=== PATIENT | female | born 1965 | race Caucasian/White ===

== ENCOUNTER → 2016-07-07 | Day surgery (SDC) | payer OTHER ==
[~2016-07-07] VITALS: Ht 154.9 cm; Wt 68.6 kg
[~2016-07-07] MED LIST: AMPICILLIN-SULBACTAM INJ 3 GM VIAL ONE; ATEN25TA PO; BACITRACIN TOP OINT 15 GM TUBE ONE; ESCI10TA PO; FOLI5CAP PO; HYDR-3516 PO; LACTATED RINGER'S 1000 ML INJ 1,000 ML ONE; LIDOCAINE 1%/EPINEPHrine 1:100,000 SOLN 30 ML VIAL ONE; MAGN500T5 PO; METH2.5T PO; ONDANSETRON HCL 4 MG/2 ML VIAL ONE; OXYMETAZOLINE HCL 0.05% 15 ML NASAL SPRAY ONE; PROPOFOL 200 MG/20 ML AMP IV ONE; SIMV10TA PO; SODIUM CHLORIDE 0.9% INJ 100 ML ONE; TOPI1TAB31 PO; fentaNYL CITRATE 250 MCG/5 ML AMP ONE
[2016-07-07 07:06] VITALS: BP 144/72; PULSE 63; RESP 20; TEMP 98; O2SAT 97
[2016-07-07 08:34] VITALS: PULSE 86
[2016-07-07 09:00] VITALS: PULSE 70; TEMP 98.3
[2016-07-07 09:35] VITALS: BP 112/74; PULSE 67; RESP 16; O2SAT 98
--- NOTE | 2016-07-07 14:50 | EKG ---
Date Performed: 07/07/2016 Time Performed: 07:10:52 PTAGE: 51 years EKG: Sinus rhythm . Left axis deviation Possible anteroseptal infarct - age undetermined Lateral T wave changes may be due to myocardial ischemia Abnormal ECG NO PREVIOUS TRACING DOCTOR: Miles Zimmerman Interpretating Date/Time 07/07/2016 14:49:00
--- NOTE | 2016-07-07 16:48 | MP ---
cc: STEW ABREU M.D. DATE OF SURGERY 07/07/[address] Stew Abreu PREOPERATIVE DIAGNOSES 1. Nasal airway obstruction. 2. Nasal septal deviation. 3. Hypertrophy inferior turbinates. 4. Adenoidal hypertrophy. POSTOPERATIVE DIAGNOSES 1. Nasal airway obstruction. 2. Nasal septal deviation. 3. Hypertrophy inferior turbinates. 4. Adenoidal hypertrophy. OPERATION PERFORMED 1. Open repair of nasal septal fracture. 2. Bilateral submucosal resection of inferior turbinates. 3. Transnasal biopsies of nasopharyngeal lesion. 4. Adenoidectomy. INDICATIONS The indications are documented history and physical. DESCRIPTION OF OPERATION The patient was taken to OR #2 and placed in the supine position. Following induction of general anesthesia and intubation the nose was packed bilaterally with cotton pledgets saturated in 0.05% Oxymetazoline. The septal mucosa and inferior turbinates were injected with a total of 60 ml of 1% Xylocaine with epinephrine 1:100,000. She was then prepped and draped for surgery. Nasal packing was removed and a hemitransfixion incision was made in the left nasal vestibule. Through this incision the mucosa of septum was elevated as far as the junction of the bony cartilaginous septum. This exposed the quadrangular cartilage which was very thick, twisted and irregular with evidence of old septal fracture. A cumulative area of 2.0 x 2.5 cm was removed preserving 1.5 cm dorsal and caudal cartilaginous struts. When this was completed the mucosa was elevated from the bony septum and the maxillary crest and the bony septum was removed with Maurice Carlton forceps and Sam septal forceps. The maxillary crest was removed using a 6-mm Josh chisel. The incision was then closed with a running suture of 4-0 chromic and the mucosal layers of septum were approximated to each other with a quilting stitch of 4-0 plain gut. The inferior turbinates were then fractured out medially and stab incisions were opened along their inferior surfaces. Through these incisions the submucosal soft tissue was reduced using a curette and preserving the conchal bone. The incisions were then cauterized using suction Bovie at 35 sears. When this was completed and the nasal vault was irrigated and suctioned, the table was then turned 90 degrees and a shoulder roll and a McIvor mouth gag were put in place. A soft catheter was advanced into the right naris and brought out through the oral cavity to retract the soft palate. Mirror examination of the nasopharynx showed there to be extreme hypertrophy of the adenoidal pad. This was biopsied in several locations using a Blakesley forceps passed transnasally. These were passed off the field for histological examination. The remainder of the adenoidal pad was then removed using adenoid curette and suction Bovie at 45 sears. There was generous amount of purulent material within the submucosal layers of the adenoidal pad. This was also irrigated and drained from the nasopharynx. When this was completed the stomach was aspirated of several ccs of clear gastric contents using a #18 [place] sump NG tube. The catheter was removed from the nasopharynx. The nose was then packed with Merocel tampons coated in bacitracin ointment and the procedure was terminated. The patient was reversed from anesthesia and taken to recovery in good condition. There no complications. Blood loss was 80 ml, MD PARKER Carmona/KK /2:21 PM /4:34 PM
== END | disposition home or self-care (01) ==
LOC: PHSDC 06:21
PROVIDERS: ATTEND Otolaryngology
DX: J98.8 Other specified respiratory disorders (principal); J34.2 Deviated nasal septum; J35.2 Hypertrophy of adenoids; J34.3 Hypertrophy of nasal turbinates; I10 Essential (primary) hypertension; Z01.810 Encounter for preprocedural cardiovascular examination
CPT/HCPCS: 00160; 21337; 30140; 42806; 42831; 88305; 93005; J0295; J2405; J3010; J7120; 88300